=== PATIENT | female | born 1975 | race Two or more races ===

== ENCOUNTER 2019-03-07 00:30 | Emergency (ER) | payer BC, OTHER ==
[~2019-03-07] VITALS: Ht 170.2 cm; Wt 92.0 kg
[2019-03-07 00:33] VITALS: BP 151/67
== END 2019-03-07 02:57 | disposition home or self-care (01) ==
LOC: ED 02:21
DX: S29.012A Strain of muscle and tendon of back wall of thorax, initial encounter (principal); R10.9 Unspecified abdominal pain; X58.XXXA Exposure to other specified factors, initial encounter; Y93.89 Activity, other specified; Y92.89 Other specified places as the place of occurrence of the external cause; Y99.8 Other external cause status
CPT/HCPCS: 36415; 71046; 80048; 81001; 82040; 84484; 85025; 87086; 93005; 99284